=== PATIENT | female | born 1995 | race Caucasian/White ===

== ENCOUNTER → 2017-12-08 | Outpatient (CLI) | payer OTHER ==
--- NOTE | 2017-12-08 13:42 | RADIOLOGY IMAGING REPORT ---
FACILITY: [facility] [place] PATIENT NAME: Maru Llanes : 1995 MR: [id number] V: [id number] EXAM DATE: ORDERING PHYSICIAN: ABISAI FLORES TECHNOLOGIST: [place] [facility] [place]: Maru Llanes : 1995 Visit/Account:[id number] Date of Sevice: 12/08/2017 Thoracic spine with standing views, three views. HISTORY: Scoliosis. COMPARISON: None. A moderate levoscoliosis is present in the upper thoracic spine. A moderate dextroscoliosis is prese nt in the lower thoracic spine. A moderate levoscoliosis is present in the upper lumbar spine. Uppe r thoracic, lower thoracic, and upper lumbar scoliosis angles measure 32 degrees, 45 degrees, and 19 degrees respectively. Thoracic discs are normal in height. The posterior elements are partially obs cured. IMPRESSION: Moderate thoracolumbar scoliosis. Report Dictated By: Dick Vines MD at 12/08/2017 1:33 PM Report E-Signed By: Dick Vines MD at 12/08/2017 1:37 PM WSN:[email or web address]
== END ==
LOC: RAD 12:42
PROVIDERS: ATTEND Chiropractor
DX: M41.85 Other forms of scoliosis, thoracolumbar region (principal)
CPT/HCPCS: 72070